=== PATIENT | female | born 1980 | race Caucasian/White ===

== ENCOUNTER 2016-09-24 11:57 | Emergency (ER) | payer OTHER ==
--- NOTE | 2016-09-24 14:51 | RAD ---
HISTORY: Fall, right hip pain COMPARISONS: None VIEWS: 3, Frontal, lateral, and oblique views of the right foot FINDINGS: BONE DENSITY: Normal. BONES: There is no displaced fracture. JOINTS: There is no arthropathy. ALIGNMENT: There is no dislocation. SOFT TISSUES: Unremarkable. OTHER FINDINGS: None. IMPRESSION: NO ACUTE OSSEOUS INJURY. IF SYMPTOMS PERSIST, RECOMMEND REPEAT IMAGING.
--- NOTE | 2016-09-24 14:51 | RAD ---
INDICATION: Right hip injury. COMPARISON: There are no prior studies available for comparison. TECHNIQUE: An AP view of the pelvis and frontal and lateral views of the right hip were obtained. FINDINGS: The bones are in normal alignment. No fracture is seen. Joint spaces appear maintained. IMPRESSION: NO EVIDENCE FOR FRACTURE, IF THE PATIENT'S SYMPTOMS PERSIST RECOMMEND FOLLOW-UP IMAGING.
--- NOTE | 2016-09-24 14:52 | RAD ---
Indication: Back pain. 5 views of lumbar spine are reviewed. Vertebral bodies appear normal in height. There is probable transitional vertebra with partial lumbarization of S1. Hypoplastic S1-S2 disc is noted. The remainder of the vertebral bodies appear normal in height and alignment. All the intervertebral foramen appear patent. IMPRESSION: NO FRACTURE OF THE LUMBAR SPINE IS NOTED. 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
--- NOTE | 2016-09-24 15:49 | ED ---
Complex/Multi-Sys Presentation - HPI Summary HPI Summary: Pt here w/ fall 2 days ago. Was walking down her stairs outside and fell - not sure how she fell - may have tripped or was dizzy? Recalls findings herself on the ground and seeing her sister over her. Has pain and bruising along her Rt hip and Left foot. Admits she bruises easily. Pain in Rt lower back, hip, and foot. Has been taking ibuprofen w/o relief - sleeping poorly. Denies numbness, tingling, weakness - has been able to ambulate. Also reports she thinks she had a seizure the other day after colliding heads w/ her dog - has had a [place] since and no medical evaluation. Has had more fatigue since this happened. No known h/ o seizures. Takes zoloft, xanax and clonidine. She's taken the first 2 for years and clonidine is relatively new - feels fatigued when she takes this since starting it -when asked if she'd been on other meds, she reports she had persistently hig BP's in the 200's and this is what works. She moved here from [facility] 6 months ago - no PCP. - History Of Current Complaint Chief Complaint: EDBackInjuryPain Time Seen by Provider: 09/24/16 15:29 Hx Obtained From: Patient - Allergies/Home Medications Allergies/Adverse Reactions: Allergies Allergy/AdvReac Type Severity Reaction Status Date / Time Penicillins Allergy Swelling Verified 09/24/16 12:12 PMH/Surg Hx/FS Hx/Imm Hx Previously Healthy: Yes Endocrine/Hematology History: Reports: Hx Anemia Denies: Hx Anticoagulant Therapy, Hx Blood Disorders Cardiovascular History: Reports: Hx Hypertension Psychiatric History: Reports: Hx Anxiety Infectious Disease History: No Infectious Disease History: Denies: Traveled Outside the [place] in Last 30 Days - Social History Lives: With Family Alcohol Use: None Hx Substance Use: No Substance Use Type: Reports: None Smoking Status (MU): Former Smoker Review of Systems Positive: Fatigue - see HPI Eyes: Negative Negative: Chest Pain Negative: Shortness Of Breath, Cough Gastrointestinal: Negative Negative: Abdominal Pain, Vomiting, Diarrhea, Nausea Positive: no symptoms reported. Negative: incontinence Musculoskeletal: Other - see HPI Positive: Bruising - see HPI Neurological: Other - see HPI Psychological: Normal All Other Systems Reviewed And Are Negative: Yes Physical Exam Triage Information Reviewed: Yes Vital Signs On Initial Exam: Initial Vitals Temp Pulse Resp BP Pulse Ox 97.8 F 87 18 142/79 100 09/24/16 12:09 09/24/16 12:09 09/24/16 12:09 09/24/16 12:09 09/24/16 12:09 Vital Signs Reviewed: Yes Appearance: Positive: Well-Appearing, No Pain Distress, Obese Skin: Positive: Warm, Dry - purpuric ecchymosis over Rt lateral hip; ecchymosis over Rt dorsal foot w/ superficial healing abrasion Head/Face: Positive: Normal Head/Face Inspection Eyes: Positive: Normal, EOMI, EDUARDO, Conjunctiva Clear ENT: Positive: Hearing grossly normal, Pharynx normal Dental: Negative: Dental Fracture @ Neck: Positive: Supple, Nontender Respiratory/Lung Sounds: Positive: Clear to Auscultation, Breath Sounds Present Cardiovascular: Positive: Normal, Pulses are Symmetrical in both Upper and Lower Extremities Abdomen Description: Positive: Nontender Musculoskeletal: Positive: Strength/ROM Intact, Pain @ - Rt lumbar region, Rt hip over bruise are TTP; pt reports pain w/ moving hip and LE on this side although she has FROM Neurological: Positive: Normal, Sensory/Motor Intact, Alert, Oriented to Person Place, Time, CN Intact II-III Psychiatric: Positive: Anxious Diagnostics - Vital Signs Vital Signs Temp Pulse Resp BP Pulse Ox 09/24/16 14:51 98.4 F 82 16 138/95 100 09/24/16 14:03 98.4 F 92 16 138/95 100 09/24/16 12:09 97.8 F 87 18 142/79 100 - Laboratory Lab Statement: Any lab studies that have been ordered have been reviewed, and results considered in the medical decision making process. Complex Multi-Symp Course/Dx Course Of Treatment: Pt here w/ fall onto Rt side after tripping downstairs 2 days ago. She has a hematoma along Rt hip and bruising w/ abrasion over Rt foot. These areas are painful and she reports no relief w/ ibuprofen at home over past 2 days. She takes zoloft and xanax for MH issues and thinks she may have had a seizure the other day - does not believe she had one the day of her fall. She also takes clonidine for HTN. She has not had a w/u yet for "seizure" although since this was followed by a head injury (collision w/ dog), a head CT was ordered today. This appears to be normal per radiology report and pt does not have any observed seizure activity while here. She is treated for her acute injuries and advised to f/u w/ PCP this week for further w/u. She agrees not to drive in the meantime and will return to ED if danger s/sx present. Pain control options provided however no neurologic altering pain medications were provided today to avoid masking neurological deficits, interfering w/ current medications which can reduce resp response/BP as well as triggering possible seizure activity if this is actually happening. Education provided in d/c summary. D/t possibly undiagnosed seizure, it is advised that she follow-up with PCP for further outpt w/u. Referral info provided today. Will refrain from tramadol which can increase risk of seizure. She denies substance abuse currently or in the past. Reviewed danger s/sx of when to return to ED. - Diagnoses Provider Diagnoses: Fall down stairs, Hematoma of right lower extremity, Contusion of right foot Discharge - Discharge Plan Condition: Stable Disposition: HOME Patient Education Materials: Contusion in Adults (ED), Fall Prevention (ED), Hematoma (ED) Referrals: [facility] [place] [facility] REFERRAL [Outside] Additional Instructions: You appear to have a hematoma. This may be treated with ice alternating with heat. You may also take acetaminophen 650mg every 6 hours alternating with ibuprofen 600mg every 6 hours - take with food. You may also apply topical analgesic such as biofreeze, arnica, etc. Once you can tolerate applying pressure to this area, gently massage to help break up scar tissue. You most likely have some muscle strains in your back, hip and foot as well. Rest, ice, elevate and repeat recommendations as mentioned above. Follow-up with PCP. A referral contact number has been provided for you today - call tomorrow to establish. It is important that you discuss not only this injury with your PCP but also concerns about possible seizure and your current medications combination. Additional medications were not prescribed today as to reduce risk of triggering a seizure. It is important that you follow-up within the week to have this further investigated. *If you develop headache, photophobia, vomiting, confusion, syncope, return to ED
--- NOTE | 2016-09-24 16:30 | RAD ---
INDICATION: Head injury, possible seizure. COMPARISON: There are no prior studies available for comparison. TECHNIQUE: Contiguous axial sections of the brain were obtained from the skull base to the vertex without contrast. FINDINGS: The ventricles, cisterns and sulci are within normal limits. No significant focal abnormality or mass effect is seen. There is no evidence for hemorrhage. No significant focal osseous abnormality is seen. The visualized portion of the paranasal sinuses and mastoid air cells appear clear. IMPRESSION: NO EVIDENCE FOR ACUTE INTRACRANIAL ABNORMALITY.
[2016-09-24] MEDS ORDERED: Acetaminophen TAB* 325 MG PO ONE (16:40)
[2016-09-24 17:00] VITALS: BP 124/80
== END 2016-09-24 16:58 | disposition home or self-care (01) ==
LOC: ED 11:57
DX: S90.31XA Contusion of right foot, initial encounter (principal); S80.11XA Contusion of right lower leg, initial encounter; W10.9XXA Fall (on) (from) unspecified stairs and steps, initial encounter; Y93.9 Activity, unspecified; Y92.9 Unspecified place or not applicable; Y99.9 Unspecified external cause status
CPT/HCPCS: 70450; 72110; 99282; A9270-GY